=== PATIENT | male | born 1970 | race African-American/Black ===

== ENCOUNTER 2025-06-28 13:27 | Emergency (ER) | payer OTHER, SELFPAY ==
--- NOTE | 2025-06-28 13:34 | ED_ITS ---
HPI - Dental/Oral General Chief complaint: Dental/Oral Stated complaint: DENTAL PAIN Time Seen by Provider: 06/28/25 13:36 Source: patient Mode of arrival: ambulatory History of Present Illness HPI Narrative: 54-year-old male presented for complaint of ulceration to the bottom of the tongue. Onset 6 weeks. 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 Since onset patien t was seen by his PCP who prescribed Magic mouthwash, however patient states it is not helping anymore. Patient has not been able to get into a dentist. Denies dental pain, difficulty swallowing. Has been eating soup. Complaint: tooth pain Related Data Allergies Allergy/AdvReac Type Severity Reaction Status Date / Time No Known Allergies Allergy Verified 06/28/25 13:37 Review of Systems Review of Systems: CONSTITUTIONAL: Denies body aches, fever, chills ENT: Denies rhinorrhea, congestion, sore throat, or otalgia. Reports tongue pain/ulcer CARDIOVASCULAR: Denies chest pain, palpitations RESPIRATORY: Denies cough or dyspnea. SKIN: Denies rash MUSCULOSKELETAL: Denies myalgia. NEUROLOGIC: Denies headache, numbness, tingling, or weakness. PMFSH Comments At time of signature, I have reviewed and agree with nursing past medical, surgical, social and family history unless otherwise noted. Please see nursing chart for further information. There is no relevant family history pertinent to the presenting complaint Exam Narrative: GENERAL: Appears in pain; no acute distress. HEAD: Normocephalic, atraumatic. EYES: EOMI. No redness or drainage. Conjunctivae normal. ENT: Left Floor of mouth with apparent bony prominence. Left side of tongue with ulceration noted, no drainage. C/w site of rubbing on the bony prominence. Mucous membranes pink and moist. TMs normal bilaterally. Throat normal. Uvula midline. NECK: Normal AROM. CHEST: No respiratory distress. Clear to auscultation. HEART: Regular rate and rhythm. SKIN: Warm, dry, no rash. Normal skin turgor. NEURO: Alert and oriented x3. Course Course Emergency Course: Patient is aware of diagnosis, understands and agrees to treatment plan. Anticipatory guidance given. Patient agrees to follow-up as directed and is aware of reasons to seek care at the emergency department. Portions of this record may have been created with voice recognition software Level of Care: Express Care Visit MDM - Dental/Oral MDM Narrative Medical decision making narrative: Discussed physical exam findings c/w his report of mandibular torus, which is now causing an ulceration to the tongue x6 weeks. Advised close f/u with oral surgeon or ENT. Will send contact info for referral. Advised supportive measures and signs/symptoms to go to the ER. Pt is appropriate for outpt treatment and f/u. Differential Diagnosis Differential diagnosis: Likely gingival abscess, toothache, dental abscess, aphthous ulcer and other Discharge Plan Discharge Clinical Impression: Tongue ulceration Patient Disposition: Home Condition: Stable Additional Instructions: Recommend eliminating the source of the ulceration on the tongue (mandibular torus) You will need to follow up with your PCP You may need to see an oral surgeon Tylenol every 8 hours as needed for pain/fever Avoid foods that irritate your mouth. These may include nuts, chips, pretzels, certain spices, salty foods and acidic fruits, such as pineapple, grapefruit and oranges. Use a soft brush to help prevent irritation to delicate mouth tissues, and avoid toothpastes and mouth rinses that contain sodium lauryl sulfate Soft foods, cool liquids, warm tea. dexamethasone elixir as directed: 5 mL swish and spit three to four times daily. It is important to keep the medication in the mouth for five minutes prior to spitting it out. Do not rinse afterward and avoid eating or drinking for 30 minutes --Follow up with your PCP, ENT, and/or dentist --Go to the ER immediately if you cannot swallow your saliva, trouble breathing/wheezing, throat swelling, pain is persistent and severe Patient Language: [place] Prescriptions: New dexamethasone 0.5 mg/5 mL elixir 0.5 mg PO QID 7 Days Qty: 140 0RF Rx Instructions: swish and spit three to four times daily. Follow-up/Referrals: Boubacar Swann MD [Physician, Ear, Nose, Throat] Referral Note: mandibular torus, tongue ulceration PHYSICIAN,TUBULAR PRODUCTS FABRICATOR [Primary Care Provider, Internal Medicine] Time of Disposition: 13:54
[2025-06-28 13:38] VITALS: BP 134/88; PULSE 95; RESP 16; TEMP 36.5; O2SAT 99
== END 2025-06-28 14:00 | disposition home or self-care (01) ==
PROVIDERS: Emergency Provider Nurse Practitioner Family
DX: K14.0 Glossitis (principal)
CPT/HCPCS: 99203; G0463